=== PATIENT | female | born 1970 | race Hispanic/Latino ===

== ENCOUNTER 2025-01-07 22:15 | Emergency (ER) | payer OTHER ==
--- OUTSIDE RECORDS SUMMARY | 2025-01-07 22:20 | XMS REPORT | Continuity of Care Document ---
Author Name Unknown Address [address] [facility] [address] [facility] [place] [address] [facility] Address [address] [facility] [place] [address] Care Team Providers Care Management Expert Name Role Phone MELINDA STEINBERG Primary Care Physician Unavailab le Melinda Steinberg Attending Clinician Unavailable Lorene Cooper Attending Clinician Unavailable CHERISE VALDEZ Attending Clinician Unavailable RADIOLOGY Attending Clinician Unavailable LAB90 Attending Clinician Unavailable ALBERTO SUTTON Attending Clinician Unava ilRUCHI Liu Attending Clinician Unavailable ANGELINA CONRAD Attending Clinician Unavailable MELINDA STEINBERG Admitting Clinician Unavailable Payers Payer Name Policy Type Policy Number Effective Date Expirati on Date Source HIM [facility] [id number] 2024 00:00:00 [facility] [employer]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 ON 9 [id number] 2022 00:00:00 [facility] Individual Exchange Benefit Plan [id number] 2022 00:00:00 [facility] 6 [id number] [facility] Ambetter from [facility] [id number] 2020 00:00:00 [facility] Ambetter from [facility] [id number] 2020 00:00:00 [facility] Problems Condition Name Condition Details Condition Category Status Onset Date Resolution Date Last Treatment Date Treating Clinician Comments Source Carpal tunnel syndrome on both sides Carpal tunnel syndrome on both sides Disease Active 2023-05 00:00: 00 Joanna Pennold - Externa l Immunodefi ciency due to conditions classified elsewhere (multi HCC) Immunodefi ciency due to conditions classified elsewhere (multi HCC) Disease Active 2022-05 2- 00:00: 00 Joanna Pennold - Externa l Obesity Obesity Disease Active 01-20 00:00: 00 Joanna Seybold - Externa l DM type 2 with diabetic mixed hyperlipid emia (multi HCC) DM type 2 with diabetic mixed hyperlipid emia (multi HCC) Disease Active 01-20 00:00: 00 Joanna Pennold - Externa l Morbid obesity Morbid obesity Disease Active 01-20 00:00: 00 Joanna Pennold - Externa l Well adult exam Well adult exam Disease Active 01-20 00:00: 00 Joanna Pennold - Externa l Hypertensi on Hypertensi on Disease Active 01-20 00:00: 00 Joanna Pennold - Externa l Benign mole Benign mole Disease Active 01-20 00:00: 00 Joanna Pennold - Externa l [id number] Carpal tunnel syndrome of right wrist Problem [facility] [id number] Carpal tunnel syndrome of left wrist Problem [facility] [id number] Body mass index [BMI] 40.0-44.9, adult Problem [facility] [id number] Type 2 diabetes mellitus with hyperglyce kiera, without long-term current use of insulin Problem [facility] [id number] Hypertensi ve heart disease without heart failure Problem [facility] [id number] Morbid (severe) obesity due to excess calories Problem [facility] [id number] Mixed hyperlipid emia Problem [facility] Allergies, Adverse Reactions, Alerts Allergy Name Allergy Type Status Severity Reaction(s) Onset Date Inactive Date Treating Clinician Comments Source NO KNOWN ALLERGIE S Drug Class Active Univers [facility] Social History Social Habit Start Date Stop Date Quantity Comments Source History of Tobacco Use [facility] Sexual orientation Rafa daniels Sekoricheryl - External ASSERTION Not Joanna Hutton - External History of Occupation Joanna Hutton - External Gender identity Ora rebeka Hutton - External Alcoholic beverage intake 2024-02-17 00:00:00 2024-02-17 00:00:00 Lifetime non-drinker (finding) Joanna Hutton - External Alcohol intake 2023-07-21 00:00:00 2023-07-21 00:00:00 Lifetime non-drinker (finding) Joanna Hutton - External History of Social function 2023-02-02 00:00:00 2023-02-02 00:00:00 Joanna Hutton - External Education 2023-01-20 00:00:00 2023-01-20 00:00:00 13 Joanna Hutton - External Tobacco use and exposure 2023-01-16 00:00:00 2023-01-16 00:00:00 Smokeless tobacco non-user Joanna Hutton - External Sex 2022-11-21 02:19:29 2022-11-21 02:19:29 Female (finding) Joanna Hutton - External Sex assigned at 1970 00:00:00 1970 00:00:00 Joanna Hutton - External Smoking Status Start Date Stop Date Source Never smoked tobacco Joanna Hutton - External Medications Ordered Medication Name Filled Medication Name Start Date Stop Date Current Medication? Ordering Clinician Indication Dosage Frequency Signature (SIG) Comments Components Source Trulicity 3 MG/0.5ML subcutaneou s Solution Pen-injecto r 2023-05 00:00: 00 Yes [id number] 3 3mg Q1W Inject 3 mg into the skin once a week. Joanna Hutton - Externa l Gabapentin 100 MG oral Capsule 2023-05 00:00: 00 Yes [id number] 100mg Q.5D Take 1 capsule (100 mg total) by mouth 2 times daily as needed (pain). Joanna ventura Atorvastati n Calcium 40 MG oral Tablet 16 00:00: 00 Yes [id number] 3 40mg Take 1 tablet (40 mg total) by mouth at bedtime. Joanna ventura KETOCONAZOL E, TOPICAL, 2 % apply externally Shampoo 01-05 00:00: 00 Yes [id number] Apply to affected areas once weekly, leave in for 15 minutes, then rinse. Joanna ventura Fluconazole 200 MG oral Tablet 01-05 00:00: 00 01-14 04:59 :00 No [id number] 200mg Q1W Take 1 tablet (200 mg total) by mouth once a week for 2 doses. Joanna ventura Trulicity 0.75 MG/0.5ML subcutaneou s Solution Pen-injecto r 11-08 00:00: 00 11-16 00:00 :00 No [id number] 3 .75mg Q1W INJECT 0.75 MG UNDER THE SKIN ONCE A WEEK. Joanna ventura Dulaglutide (Trulicity) 0.75 MG/0.5ML subcutaneou s Solution Pen-injecto r 05 00:00: 00 Yes [id number] 3 .75mg Inject 0.75 mg into the skin once a week. Joanna ventura Phenylephri ne-DM-GG-AP AP (TYLENOL COLD/FLU SEVERE OR) 2022-05 08:46: 26 04-21 00:00 :00 No Take by mouth. Joanna ventura Phenylephri ne-DM-GG-AP AP (TYLENOL COLD/FLU SEVERE OR) 2022-05 0 14:34: 55 Yes Take by mouth. Joanna ventura Pioglitazon e HCl (Actos) 15 MG oral Tablet 06 00:00: 00 Yes [id number] 3 15mg Take 1 tablet (15 mg total) by mouth daily. Joanna ventura Metoprolol Tartrate (LOPRESSOR) 25 MG oral Tablet 01-21 00:00: 00 Yes 25mg Take 1 tablet (25 mg total) by mouth 2 times daily. Joanna ventura Metoprolol Tartrate (LOPRESSOR) 25 MG oral Tablet 01-20 09:15: 11 01-20 00:00 :00 No 25mg Take 1 tablet (25 mg total) by mouth 2 times daily. Joanna ventura Atorvastati n Calcium 40 MG oral Tablet 01-20 00:00: 00 Yes [id number] 3 40mg Take 1 tablet (40 mg total) by mouth at bedtime. Joanna ventura Metformin HCl 1000 MG oral Tablet 01-20 00:00: 00 Yes [id number] 3 1000mg Take 1 tablet (1,000 mg total) by mouth in the morning and 1 tablet (1,000 mg total) in the evening. Take with meals. Joanna ventura GlipiZIDE 10 MG oral TABLET SR 24 HR 01-20 00:00: 00 Yes [id number] 3 10mg QD Take 1 tablet (10 mg total) by mouth daily. Joanna ventura Metoprolol Tartrate (LOPRESSOR) 25 MG oral Tablet 01-20 00:00: 00 01-20 00:00 :00 No [id number] 25mg Take 1 tablet (25 mg total) by mouth 2 times daily. Joanna ventura Metformin HCl 1000 MG oral Tablet 12-17 00:00: 00 01-20 00:00 :00 No 1000mg Take 1 tablet (1,000 mg total) by mouth in the morning and 1 tablet (1,000 mg total) in the evening. Take with meals. Joanna ventura GlipiZIDE 10 MG oral TABLET SR 24 HR 12-12 00:00: 00 01-20 00:00 :00 No 10mg Take 1 tablet (10 mg total) by mouth daily. Joanna Nerivastati n Calcium 40 MG oral Tablet 12-12 00:00: 00 01-20 00:00 :00 No 40mg Take 1 tablet (40 mg total) by mouth at bedtime. Joanna ventura metFORMIN HCl 1000 MG metFORMIN HCl 1000 MG 2020-05 00:00: 00 No 1{table t_with_ meals} BID metFORMIN HCl 1000 MG Atorvastati n Calcium 40 MG Atorvastati n Calcium 40 MG 2020-05 00:00: 00 No 1{table t} Atorvastat in Calcium 40 MG Bupivicaine [place] Bupivicaine [place] 07-04 00:00: 00 No 4mL [facility] Kenalog (Triamcinol one) Kenalog (Triamcinol one) 07-04 00:00: 00 No 40mg [facility] Trulicity 1.5 MG/0.5ML Trulicity 1.5 MG/0.5ML No Trulicity 1.5 MG/0.5ML Vital Signs Vital Name Observation Time Observation Value Comments S ource height 2024-10-04 09:00:00 64 [in_i] Commo n [facility] weight 2024-10-04 09:00:00 228.0 [lb_av] Co mmon [facility] temperature 2024-10-04 09:00:00 97.6 [degF] Com mon [facility] bmi 2024-10-04 09:00:00 39.13 kg/m2 Comm on [facility] oximetry 2024-10-04 09:00:00 97 % Commo n [facility] blood pressure systolic 2024-10-04 09:00:00 131 mm[Hg] Common [facility] blood pressure diastolic 2024-10-04 09:00:00 60 mm[Hg] Common [facility] height 2024-07-07 08:40:00 64 [in_i] Commo n [facility] weight 2024-07-07 08:40:00 230 [lb_av] Comm on [facility] temperature 2024-07-07 08:40:00 97.4 [degF] Com mon [facility] bmi 2024-07-07 08:40:00 39.48 kg/m2 Comm on [facility] oximetry 2024-07-07 08:40:00 99 % Commo n [facility] respiratory rate 2024-07-07 08:40:00 16 /min Common [facility] blood pressure systolic 2024-07-07 08:40:00 132 mm[Hg] Common [facility] blood pressure diastolic 2024-07-07 08:40:00 76 mm[Hg] Common [facility] Systolic blood pressure 2024-02-17 13:03:00 130 mm[Hg] Joanna Seybo ld - External Diastolic blood pressure 2024-02-17 13:03:00 60 mm[Hg] Joanna Seybo ld - External Heart rate 2024-02-17 13:03:00 97 /min Kelse y Seybold - External Body temperature 2024-02-17 13:03:00 36 Claudette Joanna Seybold - External Respiratory rate 2024-02-17 13:03:00 15 /min Joanna Seybold - External Body height 2024-02-17 13:03:00 162.6 cm Ora ey Seybold - External Body weight 2024-02-17 13:03:00 113.853 kg Ora ey Seybold - External BMI 2024-02-17 13:03:00 43.08 kg/m2 Ora ey Seybold - External Systolic blood pressure 2023-11-17 19:16:00 132 mm[Hg] Joanna Seybo ld - External Diastolic blood pressure 2023-11-17 19:16:00 81 mm[Hg] Joanna Seybo ld - External Heart rate 2023-11-17 19:16:00 96 /min Kelse y Seybold - External Body temperature 2023-11-17 19:16:00 37.44 Claudette Joanna Seybold - External Respiratory rate 2023-11-17 19:16:00 18 /min Joanna Seybold - External Body height 2023-11-17 19:16:00 162.6 cm Ora ey Seybold - External Body weight 2023-11-17 19:16:00 115.667 kg Ora ey Seybold - External BMI 2023-11-17 19:16:00 43.77 kg/m2 Ora ey Seybold - External Oxygen saturation in Arterial blood by Pulse oximetry 2023-11-17 19:16:00 96 /min Joanna Seybo ld - External BMI 2023-07-21 14:35:00 41.71 kg/m2 Ora ey Seybold - External Oxygen saturation in Arterial blood by Pulse oximetry 2023-07-21 14:35:00 100 /min Joanna Seybo ld - External Systolic blood pressure 2023-07-21 14:35:00 129 mm[Hg] Joanna Seybo ld - External Diastolic blood pressure 2023-07-21 14:35:00 63 mm[Hg] Joanna Seybo ld - External Heart rate 2023-07-21 14:35:00 81 /min Kelse y Seybold - External Body temperature 2023-07-21 14:35:00 36.5 Claudette Joanna Seybold - External Respiratory rate 2023-07-21 14:35:00 20 /min Joanna Seybold - External Body height 2023-07-21 14:35:00 162.6 cm Ora ey Seybold - External Body weight 2023-07-21 14:35:00 110.224 kg Ora ey Seybold - External Systolic blood pressure 2023-04-21 14:41:00 130 mm[Hg] Joanna Seybo ld - External Diastolic blood pressure 2023-04-21 14:41:00 73 mm[Hg] Joanna Seybo ld - External Heart rate 2023-04-21 14:41:00 80 /min Kelse y Seybold - External Body temperature 2023-04-21 14:41:00 36.39 Claudette Joanna Seybold - External Respiratory rate 2023-04-21 14:41:00 20 /min Joanna Seybold - External Body height 2023-04-21 14:41:00 162.6 cm Ora ey Seybold - External Body weight 2023-04-21 14:41:00 104.781 kg Ora ey Seybold - External BMI 2023-04-21 14:41:00 39.65 kg/m2 Ora staley Seybold - External Oxygen saturation in Arterial blood by Pulse oximetry 2023-04-21 14:41:00 99 /min Joanna Hernandez ld - External Systolic blood pressure 2023-01-20 14:06:00 125 mm[Hg] Joanna Penno ld - External Diastolic blood pressure 2023-01-20 14:06:00 62 mm[Hg] Joanna Hernandez ld - External Heart rate 2023-01-20 14:06:00 79 /min Kenny Hutton - External Body temperature 2023-01-20 14:06:00 37.11 Claudette Joanna Popeybold - External Respiratory rate 2023-01-20 14:06:00 15 /min Joanna Hutton - External Body height 2023-01-20 14:06:00 162.6 cm Ora staley Seybold - External Body weight 2023-01-20 14:06:00 104.781 kg Ora staley Seybold - External BMI 2023-01-20 14:06:00 39.65 kg/m2 Ora staley Seybold - External Oxygen saturation in Arterial blood by Pulse oximetry 2023-01-20 14:06:00 99 /min Joanna velazquez - External height 2022-08-26 11:20:00 64 [in_i] Commo n [facility] weight 2022-08-26 11:20:00 232 [lb_av] Comm on [facility] temperature 2022-08-26 11:20:00 98.5 [degF] Com mon [facility] bmi 2022-08-26 11:20:00 39.82 kg/m2 Comm on [facility] oximetry 2022-08-26 11:20:00 97 % Commo n [facility] respiratory rate 2022-08-26 11:20:00 17 /min Common [facility] blood pressure systolic 2022-08-26 11:20:00 128 mm[Hg] [facility] blood pressure diastolic 2022-08-26 11:20:00 76 mm[Hg] Common [facility] height 2022-06-20 11:20:00 64 [in_i] Commo n [facility] weight 2022-06-20 11:20:00 223.8 [lb_av] Co [facility] temperature 2022-06-20 11:20:00 98.2 [degF] Com [facility] bmi 2022-06-20 11:20:00 38.41 kg/m2 Comm on [facility] oximetry 2022-06-20 11:20:00 100 % Commo n [facility] respiratory rate 2022-06-20 11:20:00 17 /min [facility] blood pressure systolic 2022-06-20 11:20:00 130 mm[Hg] Common [facility] blood pressure diastolic 2022-06-20 11:20:00 72 mm[Hg] [facility] height 2021-10-23 11:20:00 64 [in_i] Commo n [facility] weight 2021-10-23 11:20:00 233.8 [lb_av] Co [facility] temperature 2021-10-23 11:20:00 98.4 [degF] Com [facility] bmi 2021-10-23 11:20:00 40.13 kg/m2 Comm on [facility] oximetry 2021-10-23 11:20:00 97 % Commo n [facility] respiratory rate 2021-10-23 11:20:00 18 /min Common [facility] blood pressure systolic 2021-10-23 11:20:00 130 mm[Hg] [facility] blood pressure diastolic 2021-10-23 11:20:00 76 mm[Hg] Common [facility] height 2021-07-17 09:40:00 64 [in_i] Commo n [facility] weight 2021-07-17 09:40:00 244.2 [lb_av] [facility] 2021-07-17 09:40:00 97.2 [degF] Com [facility] bmi 2021-07-17 09:40:00 41.91 kg/m2 Comm on [facility] oximetry 2021-07-17 09:40:00 98 % Commo n [facility] respiratory rate 2021-07-17 09:40:00 18 /min Common [facility] blood pressure systolic 2021-07-17 09:40:00 137 mm[Hg] [facility] blood pressure diastolic 2021-07-17 09:40:00 69 mm[Hg] Common [facility] height 2021-03-19 08:00:00 64 [in_i] Commo n [facility] weight 2021-03-19 08:00:00 248.6 [lb_av] Co [facility] temperature 2021-03-19 08:00:00 97.2 [degF] Com [facility] bmi 2021-03-19 08:00:00 42.67 kg/m2 Comm on [facility] oximetry 2021-03-19 08:00:00 97 % Commo n [facility] respiratory rate 2021-03-19 08:00:00 16 /min Common [facility] blood pressure systolic 2021-03-19 08:00:00 135 mm[Hg] [facility] blood pressure diastolic 2021-03-19 08:00:00 78 mm[Hg] Common [facility] height 2021-02-18 13:15:00 64 [in_i] Commo n [facility] weight 2021-02-18 13:15:00 245.8 [lb_av] Co [facility] temperature 2021-02-18 13:15:00 98.1 [degF] Com mon [facility] bmi 2021-02-18 13:15:00 42.19 kg/m2 Comm on [facility] oximetry 2021-02-18 13:15:00 90 % Commo n [facility] respiratory rate 2021-02-18 13:15:00 16 /min [facility] blood pressure systolic 2021-02-18 13:15:00 139 mm[Hg] [facility] blood pressure diastolic 2021-02-18 13:15:00 71 mm[Hg] [facility] Encounters Start Date/Time End Date/Time Encounter Type Admission Type Attending [facility] Care Department Encounter ID Source 2024-07-05 07:48:00 Outpatient SteinbergMelinda lennon STLMLC STLMLC [id number] [facility] 2024-06-29 09:54:00 Outpatient SteinbergFelicianoi STLMLC STLMLC [id number] [facility] 2024-06-27 09:31:00 Outpatient SteinbergMelinda lennon STLMLC STLMLC [id number] [facility] 2022-11-19 13:26:00 Outpatient Steinberg, Melinda STLMLC STLMLC [id number] [facility] 2022-11-17 10:04:00 Outpatient SteinbergMelinda STLMLC STLMLC [id number] [facility] 2022-08-26 11:10:00 Outpatient SteinbergFelicianoi STLMLC STLMLC [id number] [facility] 2022-08-21 15:29:02 Outpatient SteinbergFeliciano lennoni STLMLC STLMLC [id number] [facility] 2022-06-20 11:49:01 Outpatient SteinbergFelicianoi STLMLC STLMLC [id number] [facility] 2021-06-12 13:58:57 Outpatient Melinda Steinberg STCARLLC STLMLC [id number] [facility] 2021-06-12 13:56:27 Outpatient Melinda Steinberg STCARLLC STLMLC [id number] [facility] 2021-06-12 13:55:47 Outpatient Melinda Steinberg STLMLC STLMLC [id number] [facility] 2021-06-12 13:51:15 Outpatient Melinda Steinberg STLMLC STLMLC [id number] [facility] 2021-06-12 13:50:32 Outpatient Lorene Cooper STCARLLC STLMLC [id number] [facility] 2021-06-12 13:38:37 Outpatient Lorene Cooper STCARLLC STLMLC [id number] [facility] 2021-06-12 11:08:04 Outpatient Lorene Cooper STLMLC STLMLC [id number] [facility] 2024-10-04 00:00:00 2024-10-04 00:00:00 OFFICE VISIT ESTAB PT LEVEL 4 STLMLC STLMLC [id number] [facility] 2024-08-08 00:00:00 2024-08-08 00:00:00 Outpatient CHERISE VALDEZ [id number] Joanna Hutton 2024-07-29 09:23:38 2024-07-29 23:59:00 Outpatient R RADIOLOGY [facility] [id number] [facility] 2024-07-08 00:00:00 2024-07-08 00:00:00 (TEL) STLMLC STLMLC [id number] [facility] 2024-07-08 00:00:00 2024-07-08 00:00:00 (TEL) STLMLC STLMLC [id number] [facility] 2024-07-07 00:00:00 2024-07-07 00:00:00 (ESTPTWM) Establishe d PT Women [facility] [id number] [facility] 2024-06-30 00:00:00 2024-06-30 00:00:00 (TEL) STLMLC [facility] [id number] [facility] 2024-05-03 09:00:00 2024-05-03 09:00:00 Outpatient PREZAStefany CHERISEDONNY OSWALD [id number] [facility]24-04-27 08:55:00 2024-04-27 08:55:00 Outpatient LAB90 JOANNA OSWALD [id number] [facility] 2024-02-18 00:00:00 2024-02-18 00:00:00 Outpatient PRECHERISE BEJARANO [id number] [facility] 2024-02-18 00:00:00 2024-02-18 00:00:00 Outpatient PREZACHERISE Mccall [id number] [facility] 2024-02-17 08:45:00 2024-02-17 08:45:00 Outpatient LAB90 JOANNA OSWALD [id number] [facility] 2024-02-17 08:00:00 2024-02-17 08:00:00 Outpatient PREZACHERISE Mccall [id number] [facility] 2024-01-31 00:00:00 2024-01-31 00:00:00 Outpatient PREZACHERISE Mccall [id number] [facility] 2024-01-08 00:00:00 2024-01-08 00:00:00 Outpatient ALBERTO SUTTON [id number] [facility] 2024-01-06 10:00:00 2024-01-06 10:00:00 Outpatient ALBERTO SUTTON [id number] [facility] 2023-12-15 00:00:00 2023-12-15 00:00:00 Outpatient CHERISE VALDEZ [id number] Joanna Hutton 2023-12-02 13:20:00 2023-12-02 13:20:00 Outpatient RUCHI MORSE JOANNA [id number] Joanna Hutton 2023-11-17 14:15:00 2023-11-17 14:15:00 Outpatient PRECARLEE, CHERISE OSWALD JOANNA [id number] Joanna Hutton 2023-11-08 00:00:00 2023-11-08 00:00:00 Outpatient PREZACHERISE Mccall [id number] Joanna Hutton 2023-10-26 00:00:00 2023-10-26 00:00:00 Outpatient PREZACHERISE Mccall JOANNA [id number] Joanna Hutton 2023-10-23 08:40:00 2023-10-23 08:40:00 Outpatient LAB90 JOANNA JOANNA [id number] Joanna Hutton 2023-07-23 00:00:00 2023-07-23 00:00:00 Outpatient CHERISE VALDEZ JOANNA [id number] Joanna Hutton 2023-07-21 09:15:00 2023-07-21 09:15:00 Outpatient LAB90 JOANNA JOANNA [id number] Joanna Hutton 2023-07-21 08:45:00 2023-07-21 08:45:00 Outpatient PRECHERISE BEJARANO JOANNA [id number] Joanna Popecheryl 2023-06-26 11:05:00 2023-06-26 11:05:00 Outpatient JOANNA OSWALD [id number] Joanna Popeybcheryl 2023-06-26 11:00:00 2023-06-26 11:00:00 Outpatient JOANNA OSWALD [id number] Joanna ybcheryl 2023-06-26 10:55:00 2023-06-26 10:55:00 Outpatient JOANNA OSWALD [id number] Joanna Popeybcheryl 2023-06-26 10:50:00 2023-06-26 10:50:00 Outpatient JOANNA OSWALD [id number] Joanna Popeybcheryl 2023-06-26 00:00:00 2023-06-26 00:00:00 Outpatient JOANNA JOANNA [id number] Joanna Popeybcheryl 2023-06-26 00:00:00 2023-06-26 00:00:00 Outpatient PREZAS, CHERISE OSWALD JOANNA [id number] Joanna Popeybcheryl 2023-06-26 00:00:00 2023-06-26 00:00:00 Outpatient PREZAS, CHERISE OSWALD JOANNA [id number] Jonana Popeybcheryl 2023-06-26 00:00:00 2023-06-26 00:00:00 Outpatient PREZAS, CHERISE JOANNA JOANNA [id number] Joanna Popeybcheryl 2023-06-23 08:30:00 2023-06-23 08:30:00 Outpatient ALBERTO SUTTON [id number] Joanna Popeybcheryl 2023-06-09 09:20:00 2023-06-09 09:20:00 Outpatient JOANNA OSWALD [id number] [facility] 2023-06-02 10:00:00 2023-06-02 10:00:00 Outpatient JOANNA OSWALD [id number] Joanna Popeybcheryl 2023-05-07 08:45:00 2023-05-07 08:45:00 Outpatient ALBERTO SUTTON [id number] Joanna Popeybcheryl 2023-04-22 00:00:00 2023-04-22 00:00:00 Outpatient PREZAS, CHERISE JOANNA OSWALD [id number] [facility] 2023-04-21 09:30:00 2023-04-21 09:30:00 Outpatient LAB90 JOANNA OSWALD [id number] [facility] 2023-04-21 08:45:00 2023-04-21 08:45:00 Outpatient PREZAS, CHERISE JOANNA OSWALD [id number] [facility] 2023-03-20 00:00:00 2023-03-20 00:00:00 Outpatient PREZAS, CHERISE OSWALD [id number] [facility] 2023-02-24 10:30:00 2023-02-24 10:30:00 Outpatient ALBERTO SUTTON [id number] [facility] 2023-02-19 00:00:00 2023-02-19 00:00:00 Outpatient CHERISE VALDEZ JOANNA JOANNA [id number] Joanna Popecheryl 2023-02-16 15:30:00 2023-02-16 15:30:00 Outpatient ANGELINA CONRAD JO[facility]NA OSWALD [id number] [facility] 2023-01-23 00:00:00 2023-01-23 00:00:00 Outpatient CHERISE VALDEZ JOANNA JOANNA [id number] Joanna [facility] 2023-01-21 00:00:00 2023-01-21 00:00:00 Outpatient JOSÉ MIGUEL CHERISE JOANNA OSWALD [id number] Joanna Secheryl 2023-01-20 09:45:00 2023-01-20 09:45:00 Outpatient LABJuly JOANNA OSWALD [id number] Joanna [facility] 2023-01-20 09:00:00 2023-01-20 09:00:00 Outpatient CHERISE VALDEZ JOANNA OSWALD [id number] [facility] 2022-08-26 00:00:00 2022-08-26 00:00:00 (WELLNESS) Wellness Visit STLMLC STLMLC [id number] [facility] 2022-06-20 00:00:00 2022-06-20 00:00:00 OFFICE VISIT ESTAB PT LEVEL 4 [facility]ML[facility] [id number] [facility] [facility] 2022-02-18 00:00:00 2022-02-18 00:00:00 (TEL) STLMLC STLML[facility] [id number] [facility] 2022-01-21 00:00:00 2022-01-21 00:00:00 (TEL) STLMLC STLML[facility] [id number] [facility] 2021-10-23 00:00:00 2021-10-23 00:00:00 OFFICE VISIT ESTAB PT LEVEL 4 STLMLC STLMLC [id number] [facility] 2021-07-17 00:00:00 2021-07-17 00:00:00 OFFICE VISIT ESTAB PT LEVEL 4 STLML[facility] STL[facility] [id number] [facility] 2021-05-02 00:00:00 2021-05-02 00:00:00 (TEL) ST[facility] [id number] [facility] 2021-04-26 00:00:00 2021-04-26 00:00:00 (TEL) [facility] [id number] [facility] 2021-03-19 00:00:00 2021-03-19 00:00:00 (WELLNESS) Wellness Visit [facility] [id number] [facility] 2021-02-18 00:00:00 2021-02-18 00:00:00 OFFICE VISIT NEW PT LEVEL 4 [facility] [id number] [facility] 2019-07-04 09:00:00 2019-07-04 09:00:00 Outpatient [facility] [id number] [facility] Results Test Description Test Time Test Comments Results Result Co mments Source Notes Date/Time Note Provider Source 2024-02-17 08:05:49 Chief Complaint Patient presents with Diabetes Diabetic follow up Noelle Bar MA II [facility] 2024-01-06 09:57:52 Chief Complaint Patient presents with Skin Lesion Duane Mitchell [facility] 2023-11-17 14:16:45 Chief Complaint Patient presents with Diabetes [facility]
[2025-01-07] MEDS ORDERED: ONDANSETRON 4 MG/2 ML VIAL ONE (22:23)
[2025-01-07] MEDS ORDERED: MORPHINE 4 MG/ML SYR ONE (22:24)
[2025-01-07] MEDS ORDERED: NA CHLORIDE 0.9% 1,000 ML ONE ×2 (22:24→22:39)
[2025-01-07] MEDS ORDERED: CEFAZOLIN SODIUM 1 GM/VIAL ONE (22:43)
[2025-01-07] MEDS ORDERED: NA CHLORIDE 0.9% 100 ML ONE (22:43)
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
[2025-01-07 23:11] LABS: Anion Gap 13.4 mEq/L (5.0-15.0); BUN Blood Urea Nitrogen 17.0 mg/dL (7-18); Glucose Level 180.0 mg/dL (74-106); Potassium 4.4 mEq/L (3.5-5.1)
[2025-01-07 23:16] LABS: Absolute Lymphocytes (CBC) 6.7 K/uL (0.7-4.9); Hematocrit 39.2 % (36.0-45.0); Hemoglobin 12.7 g/dL (12.0-15.0); MCH 24.2 pg (27.0-35.0); MCHC 32.5 g/dL (32.0-36.0); MCV 74.5 fL (80-100); MPV 8.5 fL (7.6-11.3); Nucleated RBC Absolute Count 0.0 (0-0); Nucleated Red Blood Cells % 0.1 % (0-0); RBC Red Blood Cell Count 5.27 M/uL (3.86-4.86); White Blood Count 16.50 thou/uL (4.3-10.9)
[2025-01-07] MEDS ORDERED: TDAP (DIPHTH,PERTUSS(ACELL),TET VAC) 0.5 ML VIAL IMVAC ONE (23:25)
[2025-01-07] MEDS ORDERED: Ringers Lactate 1,000 ML IV ONE (23:25)
[2025-01-08 00:16] VITALS: TEMP 98.2; O2SAT 100
[2025-01-08 00:19] VITALS: BP 208/87
== END 2025-01-07 23:52 | disposition short-term general hospital (02) ==
LOC: ER 22:15
DX: T21.22XA Burn of second degree of abdominal wall, initial encounter (principal); T20.20XA Burn of second degree of head, face, and neck, unspecified site, initial encounter; T23.291A Burn of second degree of multiple sites of right wrist and hand, initial encounter; T21.21XA Burn of second degree of chest wall, initial encounter; T23.292A Burn of second degree of multiple sites of left wrist and hand, initial encounter; T24.211A Burn of second degree of right thigh, initial encounter; T24.201A Burn of second degree of unspecified site of right lower limb, except ankle and foot, initial encounter; T21.24XA Burn of second degree of lower back, initial encounter; T31.40 Burns involving 40-49% of body surface with 0% to 9% third degree burns; Z23 Encounter for immunization
CPT/HCPCS: 96365; 85025; 80048; 36415; 90715; 96375; 96372; 99285; J2405; J7120; J7030 ×2; J0690